=== PATIENT | male | born 1990 | race African-American/Black ===

== ENCOUNTER → 2017-05-02 | Emergency (ER) | payer OTHER ==
[~2017-05-02] VITALS: Ht 182.9 cm; Wt 68.0 kg
[~2017-05-02] MED LIST: CEFADROXIL500 MG PO; FLEXERIL10 MG PO; KEFLEX500 MG PO; KETO10TA2 PO; MOTRIN800 MG PO
== END | disposition home or self-care (01) ==
LOC: ER 00:01
DX: S51.822A Laceration with foreign body of left forearm, initial encounter (principal); W45.8XXA Other foreign body or object entering through skin, initial encounter; Y93.89 Activity, other specified; Y92.89 Other specified places as the place of occurrence of the external cause; Y99.8 Other external cause status

== ENCOUNTER 2017-06-11 17:22 | Emergency (ER) | payer OTHER ==
[~2017-06-11] VITALS: Ht 185.4 cm; Wt 81.6 kg
== END 2017-06-11 19:56 | disposition home or self-care (01) ==
LOC: ER 17:22
DX: M94.0 Chondrocostal junction syndrome [Tietze] (principal)